=== PATIENT | female | born 1985 | race Two or more races ===

== ENCOUNTER 2025-02-08 11:49 | Emergency (ER) | payer OTHER ==
[~2025-02-08] VITALS: Ht 157.5 cm; Wt 70.0 kg
[2025-02-08 13:11] VITALS: BP 110/71; PULSE 83; RESP 13; TEMP 98; O2SAT 100
--- NOTE | 2025-02-08 13:19 | ED.PDOC ---
History of Present Illness EXP HPI Comments 39-year-old female with no past medical history presents to the emergency department with a chief complaint of post exposure onset last night. 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 Noelle villafana went to see PCP was recommended to come to ED. Patient has no further complaints. No other symptoms or modifying factors present at this time. Denies nausea vomiting diarrhea Denies fevers chills sweats Denies dizziness headache Denies numbness/tingling Chief Complaint: Post Exposure Time Seen by MD: 13:05 Reviewed Notes: Nurses Notes, Medications, Allergies Allergies: Coded Allergies: NO KNOWN ALLERGIES (Unverified , 02/08/25) Home Meds Active Scripts Dolutegravir Sodium (TIVICAY) 50 Mg Tab, 50 MG OR DAILY for 30 Days, #30 TAB 0 Refills Prov:[facility] ALMODOVAR NP 02/08/25 Emtricitabine (Emtricitabine) 200 Mg Cap, 200 MG PO DAILY for 30 Days, #30 CAP 0 Refills Prov:[facility] ALMODOVAR NP 02/08/25 Tenofovir Disoproxil Fumarate (Tenofovir Disoproxil Fuma) 300 Mg Tab, 300 MG PO DAILY for 30 Days, #30 TAB 0 Refills Prov:[facility] ALMODOVAR NP 02/08/25 Information Source: Patient Mode of Arrival: Ambulatory Severity: Moderate Timing: Hours Duration: Since onset Prehospital treatment: None Location: Broken skin Exposed to: Blood Exposed by: Touch Treatment prior to arrival: None Source information: Unknown Patient information: None Past Medical History PAST MEDICAL HISTORY: Denies Surgical History: Denies all surgeries PHP ENGINEER History: No Pertinent PHP ENGINEER History Family History Family History: Reviewed,noncontributory to illness, No family hx of Cancer, No family hx of DM, No family hx of Heart betty, No family hx of HTN, No family hx ofKidney betty, No family hx of Liver betty, No family hx of Lung betty, No family hx of Stroke Social History Smoker: Non-Smoker Alcohol: Denies ETOH Use Drugs: Denies Drug Use Lives In: Home All Other Systems: Reviewed and Negative (as per HPI) Physical Exam General Appearance: No Apparent Distress, Normal HEENT: Normal ENT Inspection, Pharynx Normal, TMs Normal Neck: Full Range of Motion, Non-Tender, Normal, Normal Inspection Respiratory: Chest Non-Tender, Lungs Clear, No Accessory Muscle Use, No Respiratory Distress, Normal Breath Sounds Cardiovascular: No Edema, No JVD, No Murmur, No Gallop, Normal Peripheral Pulses, Regular Rate/Rhythm Breast Exam: Deferred Gastrointestinal: No Organomegaly, Non Tender, No Pulsatile Mass, Normal Bowel Sounds, Soft Genitalia: Deferred Pelvic: Deferred Rectal: Deferred Extremities: No calf tenderness, Normal capillary refill, Normal inspection, Normal range of motion, Non-tender, No pedal edema Musculoskeletal : Apperance: Normal Neurologic: Alert, inspectors and regulatory officers II-XII nml as Tested, No Motor Deficits, Normal Affect, Normal Mood, No Sensory Deficits Cerebellar Function: Normal Reflexes: Normal Skin: Dry, Normal Color, Other (minor 1 cm abrasion to RT anterior patella, no TTP or surrounding erythema ) Lymphatic: No Adenopathy Was a procedure done? Was a procedure done?: No X-Ray, Labs, Meds, VS Vital Signs Date Time Temp Pulse Resp B/P (MAP) Pulse Ox O2 Delivery O2 Flow Rate FiO2 02/08/25 13:11 98.0 83 13 110/71 (84) 100 98.0 02/08/25 13:11 83 13 100 Room Air 02/08/25 12:00 98.0 83 13 110/71 (84) 100 98.0 Lab Test 02/08/25 14:02 Range/Units Hepatitis B Surface Antigen Negative Negative Hepatitis B Surface Antibody Negative Negative Hepatitis C Antibody Negative Negative HIV (1&2) Antibody Negative Negative X-Ray, Labs, Meds, VS Comment 39-year-old female with no past medical history presents to the emergency department with a chief complaint of post exposure onset last night. Patient arrives alert and oriented, ABC's intact, afebrile, vital signs stable, saturating well in room air labs were ordered. CBC was ordered to exclude anemia, blood loss, or infection. BMP was ordered to exclude electrolyte abnormalities, renal failure, dehydr ation, hyperglycemia CMP was ordered to exclude electrolyte abnormalities, renal failure, dehydration, hyperglycemia and/or liver enzyme abnormalities. PT and INR were ordered to rule out coagulopathy. Troponin and BNP were ordered to rule out myocardial infarction, or congestive heart failure. Urinalysis was ordered to rule out UTI or hematuria. Labs in the ED showed (pertinent+ and then pertinent-) Additional MDM Review of External, Non-ED records: External records reviewed. Discussion with independent historian (EMS, family) history obtained from the patient/parents (if applicable) at bedside Chronic conditions affecting care: None Social determinants of health affecting care: None Consideration of admission (observation or admission): I considered escalation of care to admission for this patient, however given the reassuring workup, the patient is safe for outpatient management. Time of 1ST Reevaluation: 13:35 Reevaluation 1ST: Unchanged Patient Education/Counseling: Diagnosis, Treatment Family Education/Counseling: No Family Present Departure 1 Departure Time of Disposition: 13:36 Impression: Primary Impression: Exposure to body fluid Additional Impression: History of potentially hazardous body fluid exposure Disposition: 01 HOME / SELF CARE / HOMELESS Condition: Stable e-Prescriptions Dolutegravir Sodium (TIVICAY) 50 Mg Tab 50 MG OR DAILY for 30 Days, #30 TAB 0 Refills Prov: LIZ AGUERO DO 02/09/25 Emtricitabine (Emtricitabine) 200 Mg Cap 200 MG PO DAILY for 30 Days, #30 CAP 0 Refills Prov: LIZ AGUERO DO 02/09/25 Tenofovir Disoproxil Fumarate (Tenofovir Disoproxil Fuma) 300 Mg Tab 300 MG PO DAILY for 30 Days, #30 TAB 0 Refills Prov: LIZ AGUERO DO 02/09/25 Critical Care Note Critical Care Time?: No Stability Stability form required: No Heart Score Heart Score: Heart Score Response (Comments) Value History N/A 0 EKG N/A 0 Age N/A 0 Risk Factors N/A 0 Troponin N/A 0 Total 0 I personally scribed for [facility] ALMODOVAR NP ([email or web address]) on 02/08/25 at 13:19. Electronically submitted by Elo Langford ([email or web address]). I personally scribed for [facility] ALMODOVAR NP ([email or web address]) on 02/08/25 at 13:20. Electronically submitted by Elo Langford ([email or web address]). MC ALMODOVAR NP Feb 08, 2025 13:19 LIZ AGUERO DO Feb 09, 2025 11:41
[2025-02-08] MEDS ORDERED: EMTR200C5 PO (13:39)
[2025-02-08] MEDS ORDERED: DOLU50TA OR (13:39)
[2025-02-08] MEDS ORDERED: TENO300T9 PO (13:39)
[2025-02-08 15:01] LABS: Hepatitis B Surface Antibody Negative (Negative); Hepatitis B Surface Antigen Negative (Negative)
[2025-02-09] MEDS ORDERED: DOLU50TA OR (11:41)
[2025-02-09] MEDS ORDERED: TENO300T9 PO (11:41)
[2025-02-09] MEDS ORDERED: EMTR200C5 PO (11:41)
== END 2025-02-08 14:04 | disposition home or self-care (01) ==
LOC: ER 11:49
DX: Z77.21 Contact with and (suspected) exposure to potentially hazardous body fluids (principal); Z79.899 Other long term (current) drug therapy; Z86.2 Personal history of diseases of the blood and blood-forming organs and certain disorders involving the immune mechanism
CPT/HCPCS: 36415; 86703; 86706; 86803; 87340